=== PATIENT | female | born 1975 | race American Indian/Alaskan Native ===

== ENCOUNTER 2017-04-21 21:35 | Emergency (ER) | payer SELFPAY ==
[2017-04-21 22:55] LABS: Eosinophils % (Auto) 1.2 % (0.0-4.3); Hematocrit 35.6 % (30.3-42.9); Hemoglobin 11.2 gm/dl (10.1-14.3); Mean Corpuscular HGB Conc 32 % (30-34); Mean Corpuscular Volume 76 fl (79-97); Platelet Count 408 K/mm3 (140-440); Red Blood Count 4.67 M/mm3 (3.65-5.03); Red Cell Distribution Width 18.3 % (13.2-15.2); White Blood Count 6.9 K/mm3 (4.5-11.0)
[2017-04-21 22:56] LABS: Mean Corpuscular Hemoglobin 24 pg (28-32)
[2017-04-21 23:15] LABS: Anion Gap 20 mmol/L; BUN/Creatinine Ratio 16.25; Blood Urea Nitrogen 13 mg/dL (7-17); Calcium 9.3 mg/dL (8.4-10.2); Carbon Dioxide 23 mmol/L (22-30); Chloride 99.1 mmol/L (98-107); Glucose 88 mg/dL (65-100); Sodium 138 mmol/L (137-145)
[2017-04-22 03:19] LABS: Bilirubin,Urine NEG (Negative); Blood,Urine SM (Negative); Ketones,Urine NEG (Negative); Leukocyte Esterase,Urine LG (Negative); Mucus,Urine 1+ /HPF; Nitrite,Urine NEG (Negative); Protein,Urine <15 mg/dL mg/dL (Negative); Urobilinogen,Urine < 2.0 mg/dL (<2.0)
--- NOTE | 2017-04-22 06:37 | Emergency Department Report ---
ED Shortness of Breath HPI - General Chief Complaint: Chest Pain Stated Complaint: SOB/DIZZINESS/CHEST PAIN Time Seen by Provider: 04/22/17 05:58 Source: patient Mode of arrival: Ambulatory Limitations: No Limitations - History of Present Illness Initial Comments: 41-year-old female here with multiple complaints. First one is that she has not had a cycle since February. She spelled like her period is best come on but she hasn't had it. She has had a tubal ligation. She does not believe she is and had a negative test. Second is that she is short of breath and fatigue. She denies chest pain to me. States that she's been having increasing shortness of breath with exertion. No fevers chills cough nausea vomiting. MD Complaint: shortness of breath -: Gradual Pain Scale: 0 Consistency: intermittent Improves With: rest Worsens With: exertion Context: occured during exertion Treatments Prior to Arrival: none - Related Data Home Oxygen Therapy: No Previous Rx's Medication Instructions Recorded Last Taken Type Fluconazole [Diflucan TAB] 200 mg PO ONCE #1 tablet 04/22/17 Unknown Rx Allergies Allergy/AdvReac Type Severity Reaction Status Date / Time No Known Allergies Allergy Unverified 03/31/14 08:02 ED Review of Systems ROS: Stated complaint: SOB/DIZZINESS/CHEST PAIN Other details as noted in HPI Constitutional: denies: chills, fever Eyes: denies: eye pain, eye discharge, vision change ENT: denies: ear pain, throat pain Respiratory: shortness of breath, SOB with exertion. denies: cough, wheezing Cardiovascular: denies: chest pain, palpitations Endocrine: no symptoms reported Gastrointestinal: denies: abdominal pain, nausea, diarrhea Genitourinary: abnormal menses. denies: urgency, dysuria, discharge Musculoskeletal: denies: back pain, joint swelling, arthralgia Skin: denies: rash, lesions Neurological: denies: headache, weakness, paresthesias Psychiatric: denies: anxiety, depression Hematological/Lymphatic: denies: easy bleeding, easy bruising ED Past Medical Hx - Past Medical History Hx Hypertension: Yes - Surgical History Additional Surgical History: tubiligation,ovarian cyst - Family History Family history: no significant - Social History Smoking Status: Never Smoker Substance Use Type: None - Medications Home Medications: Home Medications Medication Instructions Recorded Confirmed Last Taken Type Fluconazole [Diflucan TAB] 200 mg PO ONCE #1 tablet 04/22/17 Unknown Rx ED Physical Exam - General Limitations: No Limitations General appearance: alert, in no apparent distress - Head Head exam: Present: atraumatic, normocephalic - Eye Eye exam: Present: normal appearance - ENT ENT exam: Present: mucous membranes moist - Neck Neck exam: Present: normal inspection - Respiratory Respiratory exam: Present: normal lung sounds bilaterally. Absent: respiratory distress - Cardiovascular Cardiovascular Exam: Present: regular rate, normal rhythm. Absent: systolic murmur, diastolic murmur, rubs, gallop - GI/Abdominal GI/Abdominal exam: Present: soft, normal bowel sounds - Extremities Exam Extremities exam: Present: normal inspection, full ROM. Absent: tenderness - Back Exam Back exam: Present: normal inspection. Absent: CVA tenderness (R), CVA tenderness (L) - Neurological Exam Neurological exam: Present: alert, oriented X3 - Psychiatric Psychiatric exam: Present: normal affect, normal mood - Skin Skin exam: Present: warm, dry, intact, normal color. Absent: rash ED Course Vital Signs 04/21/17 04/22/17 04/22/17 22:04 02:47 03:49 Temperature 98.5 F 99.0 F Pulse Rate 93 H 82 63 Respiratory 18 18 Rate Blood Pressure 147/105 168/110 Blood Pressure [Left] O2 Sat by Pulse 99 100 Oximetry 04/22/17 04/22/17 04/22/17 04:00 04:18 04:20 Temperature Pulse Rate 68 71 68 Respiratory 13 16 13 Rate Blood Pressure 134/86 134/86 Blood Pressure 134/86 [Left] O2 Sat by Pulse 100 100 100 Oximetry 04/22/17 04/22/17 04/22/17 04:40 05:00 05:20 Temperature Pulse Rate 66 73 77 Respiratory 20 18 11 L Rate Blood Pressure 134/86 134/86 134/86 Blood Pressure [Left] O2 Sat by Pulse 100 100 100 Oximetry 04/22/17 04/22/17 04/22/17 05:50 06:00 06:20 Temperature Pulse Rate 69 69 72 Respiratory 12 14 11 L Rate Blood Pressure 136/97 139/86 139/86 Blood Pressure [Left] O2 Sat by Pulse 100 98 100 Oximetry 04/22/17 04/22/17 04/22/17 06:40 07:00 07:20 Temperature Pulse Rate 80 77 75 Respiratory 12 19 18 Rate Blood Pressure 130/87 129/84 129/84 Blood Pressure [Left] O2 Sat by Pulse 98 98 97 Oximetry 04/22/17 04/22/17 07:40 08:00 Temperature Pulse Rate 81 92 H Respiratory 13 13 Rate Blood Pressure 125/83 145/96 Blood Pressure [Left] O2 Sat by Pulse 98 100 Oximetry ED Medical Decision Making - Lab Data Result diagrams: 04/21/17 22:16 04/21/17 22:16 Laboratory Results - last 24 hr 04/21/17 04/21/17 04/21/17 22:16 22:16 Unknown WBC 6.9 RBC 4.67 Hgb 11.2 Hct 35.6 MCV 76 L MCH 24 L MCHC 32 RDW 18.3 H Plt Count 408 Lymph % (Auto) 43.0 H Tripp % (Auto) 6.7 Eos % (Auto) 1.2 Baso % (Auto) 1.0 Lymph # 3.0 Tripp # 0.5 Eos # 0.1 Baso # 0.1 Seg Neutrophils % 48.1 Seg Neutrophils # 3.3 Sodium 138 Potassium 4.0 Chloride 99.1 Carbon Dioxide 23 Anion Gap 20 BUN 13 Creatinine 0.8 Estimated GFR > 60 BUN/Creatinine Ratio 16.25 Glucose 88 Calcium 9.3 Magnesium 2.20 Troponin T < 0.010 Urine Color Yellow Urine Turbidity Clear Urine pH 5.0 Ur Specific [place] 1.019 Urine Protein <15 mg/dl Urine Glucose (UA) Neg Urine Ketones Neg Urine Blood Sm Urine Nitrite Neg Urine Bilirubin Neg Urine Urobilinogen < 2.0 Ur Leukocyte Esterase Lg Urine WBC (Auto) 11.0 H Urine RBC (Auto) 1.0 U Epithel Cells (Auto) 6.0 Urine Mucus 1+ Urine Yeast (Budding) 1+ Urine HCG, Qual Negative 04/22/17 04/22/17 00:55 04:25 WBC RBC Hgb Hct MCV MCH MCHC RDW Plt Count Lymph % (Auto) Tripp % (Auto) Eos % (Auto) Baso % (Auto) Lymph # Tripp # Eos # Baso # Seg Neutrophils % Seg Neutrophils # Sodium Potassium Chloride Carbon Dioxide Anion Gap BUN Creatinine Estimated GFR BUN/Creatinine Ratio Glucose Calcium Magnesium Troponin T < 0.010 < 0.010 Urine Color Urine Turbidity Urine pH Ur Specific [place] Urine Protein Urine Glucose (UA) Urine Ketones Urine Blood Urine Nitrite Urine Bilirubin Urine Urobilinogen Ur Leukocyte Esterase Urine WBC (Auto) Urine RBC (Auto) U Epithel Cells (Auto) Urine Mucus Urine Yeast (Budding) Urine HCG, Qual - EKG Data -: EKG Interpreted by Me - EKG Data 04/22/17 06:35 Sinus 87 normal axis normal intervals no ST-T wave changes - Medical Decision Making 41-year-old female here with complaint of fatigue and shortness of breath. Her physical exam is unremarkable and she has normal labs EKG and troponins. I do not suspect this is cardiac in nature. She is not . I will refer her back to her primary care for follow-up. Portions of this chart were dictated with dictation software. There may be dictation errors contained within this note. Critical care attestation.: If time is entered above; I have spent that time in minutes in the direct care of this critically ill patient, excluding procedure time. ED Disposition Clinical Impression: Fatigue, Shortness of breath Disposition: DC-01 TO HOME OR SELFCARE Is pt being admited?: No Condition: Stable Instructions: Dyspnea (ED) Prescriptions: Fluconazole [Diflucan TAB] 200 mg PO ONCE #1 tablet Referrals: PRIMARY CARE, [Primary Care Provider] - 3-5 Days
--- NOTE | 2017-04-22 07:30 | XRay Report ---
AP CHEST: HISTORY: Shortness of breath AP view of the chest demonstrates a normal mediastinal and cardiac contour with clear lungs and normal bony and soft tissue structures. IMPRESSION: Unremarkable AP chest.
[2017-04-22 08:13] VITALS: BP 145/96
== END 2017-04-22 08:33 | disposition home or self-care (01) ==
LOC: ED 21:35
DX: R42 Dizziness and giddiness (principal); R06.02 Shortness of breath; R53.83 Other fatigue; I10 Essential (primary) hypertension
CPT/HCPCS: 36415; 71010; 80048; 81001; 81025; 83735; 84484; 85025; 93005; 93010; 99285